=== PATIENT | female | born 1980 | race African-American/Black ===

== ENCOUNTER 2019-03-19 22:23 | Observation (INO) | payer OTHER ==
[~2019-03-19] VITALS: Ht 152.4 cm; Wt 88.1 kg
== END 2019-03-20 09:30 | disposition home or self-care (01) ==
LOC: LDOP 22:23 → LDIP 03-20 00:35
PROVIDERS: ADMIT Obstetrics & Gynecology Maternal & Fetal Medicine; ATTEND Obstetrics & Gynecology Maternal & Fetal Medicine
DX: O26.892 Other specified pregnancy related conditions, second trimester (principal); R10.9 Unspecified abdominal pain; O10.912 Unspecified pre-existing hypertension complicating pregnancy, second trimester; Z3A.21 21 weeks gestation of pregnancy
CPT/HCPCS: 81003; 87086; 99201; G0378; G0463

== ENCOUNTER 2019-03-21 23:30 | Observation (INO) | payer OTHER ==
[~2019-03-21] VITALS: Ht 152.4 cm; Wt 88.0 kg
[2019-03-21 23:52] VITALS: BP 128/64
== END 2019-03-22 07:05 | disposition home or self-care (01) ==
LOC: LDOP 23:30 → LDIP 03-22 01:00
PROVIDERS: ADMIT Obstetrics & Gynecology Maternal & Fetal Medicine; ATTEND Obstetrics & Gynecology Maternal & Fetal Medicine
DX: O62.9 Abnormality of forces of labor, unspecified (principal); O34.12 Maternal care for benign tumor of corpus uteri, second trimester; Z3A.22 22 weeks gestation of pregnancy; Z88.8 Allergy status to other drugs, medicaments and biological substances
CPT/HCPCS: 81001; 87086; 99211; G0378; G0463